=== PATIENT | female | born 1995 | race African-American/Black ===

== ENCOUNTER 2016-10-24 18:51 | Emergency (ER) | payer OTHER ==
[~2016-10-24] VITALS: Ht 144.8 cm; Wt 46.7 kg
[2016-10-24 18:52] VITALS: BP 118/86
[2016-10-24] MEDS ORDERED: FLEXERIL PO (19:34)
[2016-10-24] MEDS ORDERED: MOBIC15 MG PO (19:34)
== END 2016-10-24 19:51 | disposition home or self-care (01) ==
LOC: ER 18:51
DX: S16.1XXA Strain of muscle, fascia and tendon at neck level, initial encounter (principal); S80.02XA Contusion of left knee, initial encounter; V89.2XXA Person injured in unspecified motor-vehicle accident, traffic, initial encounter; Y93.89 Activity, other specified; Y92.89 Other specified places as the place of occurrence of the external cause; Y99.8 Other external cause status